=== PATIENT | female | born 1965 | race Caucasian/White ===

== ENCOUNTER 2018-02-13 06:41 | Day surgery (SDC) | payer BC ==
[~2018-02-13 06:41] MED LIST: Buffered Lidocaine 0.9% SYRIN* 5 ML/SYR SYRINGE INTRADERM ONE; Dexamethasone IV* 4 MG/ML 1 ML (4 MG) IV SLOW PU ONE; Dexamethasone IV* 4 MG/ML 1 ML (4 MG) ONE; Famotidine IV* 10 MG/ML 2 ML (20 mg) IV ONE; Famotidine IV* 10 MG/ML 2 ML (20 mg) ONE
[2018-02-13] MEDS ORDERED: Lidocaine 2% PF * 5 ML VIAL ONE (07:19)
[2018-02-13] MEDS ORDERED: fentaNYL* 50 MCG/ML 2 ML VIAL (100 MCG VIAL) ONE (07:19)
[2018-02-13] MEDS ORDERED: Propofol* 10 MG/ML 20 ML BTL IV PUSH ONE (07:19)
[2018-02-13] MEDS ORDERED: Midazolam* 1 MG/ML 2 ML VIAL (2 MG) ONE (07:19)
[2018-02-13] MEDS ORDERED: ROPIVACAINE 5 MG/ML 30 ML BTL (0.5%) ONE (07:31)
[2018-02-13] MEDS ORDERED: DiMENhydriNATE IV* 50 MG/ML VIAL IV PUSH PRN (07:33)
[2018-02-13] MEDS ORDERED: fentaNYL* 50 MCG/ML 2 ML VIAL (100 MCG VIAL) IV PRN (07:33)
[2018-02-13] MEDS ORDERED: Naloxone* 0.4 MG/ML 1 ML VIAL IV PRN (07:33)
[2018-02-13] MEDS ORDERED: Ketorolac INJ* 30 MG/ML 1 ML VIAL IV PRN (07:33)
[2018-02-13] MEDS ORDERED: HYDROcodone/ACETAMIN 5-325 MG* 1 TAB PO PRN (07:33)
[2018-02-13] MEDS ORDERED: Ondansetron INJ* 2 MG/ML VIAL ONE (08:10)
[2018-02-13 09:29] VITALS: BP 125/77
--- NOTE | 2018-02-13 09:43 | OP ---
Operative Report - Blank - Operative Report Date of Operation: 02/13/18 Note: DATE OF OPERATION: 02/13/2018 - formerly [facility] DATE OF : 1965 SURGEON: Geovany Coon MD. CYBER ENGINEER: JERAMY Salgado ANESTHESIOLOGIST: Dr. Parra. ANESTHESIA: Local MAC PRE-OP DIAGNOSIS: Right thumb trigger finger. POST-OP DIAGNOSIS: Right thumb trigger finger. OPERATIVE PROCEDURE: Right thumb trigger finger release with release of A1 shantel. INDICATIONS: Ruma has a right thumb trigger finger that has recurred despite injections. We talked about treatment options and they wanted to proceed with surgical release. ESTIMATED BLOOD LOSS: 2 mL. COMPLICATIONS: None. FINDINGS: As expected. DESCRIPTION OF PROCEDURE: Ruma was seen in the preoperative holding area. The correct side, site, and procedure were identified. We came back to the operating room. I infiltrated the operative area with 0.25% Marcaine. The arm was prepped and draped in the usual fashion. Time-out was performed. The arm was exsanguinated with the Esmarch and the tourniquet was inflated to 250 mmHg. I made a 1 cm incision transversely over the affected A1 shantel. Full thickness flaps were bluntly raised off the tendon sheath. Ragnell retractors were placed. I then longitudinally incised the A1 shantel on the radial third of the shantel. The release was completed proximally and distally with the tenotomy scissors. The skin was then closed with 4-0 nylon. The wound was dressed, tourniquet deflated, and the patient was taken to the recovery room in stable condition.
== END 2018-02-13 09:46 | disposition home or self-care (01) ==
LOC: OREAST 06:41
PROVIDERS: ATTEND Orthopaedic Surgery Hand Surgery
DX: M65.311 Trigger thumb, right thumb (principal); I10 Essential (primary) hypertension; K21.9 Gastro-esophageal reflux disease without esophagitis
CPT/HCPCS: J1100; J2250; J2405; J2704; J2795; J3010